=== PATIENT | female | born 1980 | race African-American/Black ===

== ENCOUNTER 2020-02-28 14:35 | Outpatient (REF) | payer OTHER, SELFPAY ==
--- NOTE | 2020-02-28 | US_ITS ---
EXAMINATION: US RETROPERITONEAL LIMITED (RENAL ONLY) CLINICAL INFORMATION: Renal stone. COMPARISON: Renal ultrasound 08/31/2019 and 01/02/2019. KUB 03/01/2019 and 12/21/2018. CT abdomen and pelvis 07/06/2017. TECHNIQUE: Real-time imaging of the kidneys. FINDINGS: RIGHT KIDNEY: 11.9 x 4.9 x 5.2 cm (SAG x AP x TRV). The kidney is normal in size, contour, and echogenicity. Renal cortical thickness is normal. There are midpole anechoic cyst measuring 1.1 x 1.2 x 1.0 cm. There are several echogenic stones. 1. Upper pole stone measures 0.5 x 0.4 x 0.4 cm. 2. A lower pole stone measures 0.3 x 0.3 x 0.2 cm. 3. Upper pole stone measures 0.4 x 0.2 x 0.3 cm. There are echogenic pyramids. No echogenic stones. There is mild hydronephrosis seen. LEFT KIDNEY: 11.1 x 5.6 x 6.0 cm (SAG x AP x TRV). The kidney is normal in size, contour, and echogenicity. Renal cortical thickness is normal. No renal calculi. There are 2 echogenic stones. A lower pole stone measuring 0.4 x 0.4 x 0.4 cm and midpole stone measuring 0.2 x 0.3 x 0.3 cm. There are echogenic pyramids visualized. There is mild fullness of left kidney pelvis. US/US renal BI IMPRESSION: 1. Bilateral echogenic pyramids and echogenic stones without caliectasis or hydronephrosis. 2. There are 3 cysts in the right kidney. 3. There is mild right hydroureteronephrosis and mild fullness left kidney pelvis.
== END 2020-02-28 14:36 | disposition home or self-care (01) ==
LOC: HO.HMGCX 14:35
PROVIDERS: PCP Internal Medicine; Visit Provider Internal Medicine
DX: N20.0 Calculus of kidney (principal)
CPT/HCPCS: 76775

== ENCOUNTER → 2020-05-17 08:53 | Outpatient (BNVA) | payer OTHER, SELFPAY | PROVIDERS: PCP Internal Medicine; Visit Provider Urology ==

== ENCOUNTER 2020-11-18 15:37 | Outpatient (REF) | payer OTHER, SELFPAY ==
--- NOTE | ~2020-11-18 | US_ITS ---
EXAMINATION: US RETROPERITONEAL LIMITED (RENAL ONLY) CLINICAL INFORMATION: Calculus of kidney. COMPARISON: Renal ultrasound 02/28/2020 and 08/31/2019. X-ray abdomen KUB 03/01/2019 and 12/21/2018. CT abdomen and pelvis 07/06/2017. TECHNIQUE: Real-time imaging of the kidneys. FINDINGS: RIGHT KIDNEY: 11.6 x 4.8 x 5.5 cm (SAG x AP x TRV). The kidney is normal in size, contour, and echogenicity. Renal cortical thickness is normal. No hydronephrosis. Midpole simple-appearing cyst measuring 1.3 x 1.7 x 1.2 cm, unchanged. Upper pole stone measuring 0.3 cm. Additional previously seen right-sided renal stones not appreciated on the current examination. LEFT KIDNEY: 11.3 x 5.7 x 5.8 cm (SAG x AP x TRV). The kidney is normal in size, contour, and echogenicity. Renal cortical thickness is normal. No focal parenchymal lesions or hydronephrosis. Lower pole stone measuring 0.4 cm. Additional, previously seen left midpole stone not appreciated on the current examination. US/US renal BI IMPRESSION: 1. Nonobstructing right upper pole 0.3 cm renal stone and left lower pole 0.4 cm renal stone. Additional previously seen renal stones not identified on the current examination. 2. No hydronephrosis.
== END 2020-11-18 15:38 | disposition home or self-care (01) ==
LOC: HO.HMGCX 15:37
PROVIDERS: PCP Internal Medicine; Visit Provider Urology
DX: N20.0 Calculus of kidney (principal)
CPT/HCPCS: 76775

== ENCOUNTER 2021-05-12 15:29 | Outpatient (REF) | payer OTHER, SELFPAY ==
--- NOTE | ~2021-05-12 | US_ITS ---
EXAMINATION: US RETROPERITONEAL LIMITED (RENAL ONLY) CLINICAL INFORMATION: Calculus of kidney. COMPARISON: Renal ultrasound 11/18/2020 and 02/28/2020. X-ray abdomen KUB 03/01/2019. CT abdomen and pelvis 07/06/2017. TECHNIQUE: Real-time imaging of the kidneys. FINDINGS: RIGHT KIDNEY: 11.3 x 4.7 x 5.5 cm (SAG x AP x TRV). The kidney is normal in size, contour, and echogenicity. Renal cortical thickness is normal. There is a 1.5 x 1.3 x 1.3 cm cyst in the midpole. No renal calculi or hydronephrosis. LEFT KIDNEY: 10.7 x 5.9 x 5.3 cm (SAG x AP x TRV). The kidney is normal in size, contour, and echogenicity. Renal cortical thickness is normal. There are 3 left renal stones largest measuring 4 x 3 mm in the lower pole. No focal parenchymal lesions or hydronephrosis. US/US renal BI IMPRESSION: Left renal stones. Small right renal cyst.
== END 2021-05-12 15:30 | disposition home or self-care (01) ==
LOC: HO.HMGCX 15:29
PROVIDERS: PCP Internal Medicine; Visit Provider Urology
DX: N20.0 Calculus of kidney (principal)
CPT/HCPCS: 76775

== ENCOUNTER 2022-02-02 15:31 | Outpatient (REF) | payer OTHER, SELFPAY | END 2022-02-02 15:32 | disposition home or self-care (01) | LOC: HO.HMGCX 15:31 | PROVIDERS: Visit Provider Urology | DX: N20.0 Calculus of kidney (principal); N28.1 Cyst of kidney, acquired | CPT/HCPCS: 76775 ==

== ENCOUNTER → 2022-02-27 08:43 | Outpatient (BNVA) | payer OTHER, SELFPAY | PROVIDERS: PCP Internal Medicine; Visit Provider Nurse Practitioner Family | DX: Z13.89 Encounter for screening for other disorder (principal) ==

== ENCOUNTER 2022-08-10 14:35 | Outpatient (REF) | payer OTHER, SELFPAY ==
--- NOTE | ~2022-08-10 | US_ITS ---
EXAMINATION: US RETROPERITONEAL LIMITED (RENAL ONLY) CLINICAL INFORMATION: Cyst of kidney, acquired. COMPARISON: Ultrasound retroperitoneal limited (renal only) 02/02/2022 and 05/12/2021. X-ray abdomen KUB 03/01/2019 and 12/21/2018. CT abdomen and pelvis without contrast 07/06/2017. TECHNIQUE: Real-time imaging of the kidneys. FINDINGS: RIGHT KIDNEY: 11.8 x 4.4 x 5.6 cm (SAG x AP x TRV). The kidney is normal in size, contour, and echogenicity. Renal cortical thickness is normal. No hydronephrosis. At the upper pole, a 4 mm nonobstructing calculus is seen. At the lower pole, a 4 mm nonobstructing calculus is seen. At the upper pole, a 1.6 cm maximal diameter benign, simple cyst is seen. At the interpolar aspect, a stable 1.4 x 2.0 x 1.3 cm minimally complex cyst is seen with minimal internal echotexture. LEFT KIDNEY: 11.7 x 6.0 x 6.0 cm (SAG x AP x TRV). The kidney is normal in size, contour, and echogenicity. Renal cortical thickness is normal. No focal parenchymal lesions. No hydronephrosis. At the interpolar aspect, a 3 mm nonobstructing calculus is seen. At the lower pole, a 1.1 cm nonobstructing calculus is seen. US/US renal BI IMPRESSION: 1. There are nonobstructing bilateral renal calculi. No hydronephrosis is seen. 2. A stable minimally complex right renal interpolar cyst is seen, and there is a further benign, simple right renal lower pole cyst, which requires no imaging follow-up.
== END 2022-08-10 14:36 | disposition home or self-care (01) ==
LOC: HO.HMGCX 14:35
PROVIDERS: PCP Internal Medicine; Visit Provider Nurse Practitioner Family
DX: N20.0 Calculus of kidney (principal); N28.1 Cyst of kidney, acquired
CPT/HCPCS: 76775

== ENCOUNTER 2022-09-03 15:33 | Outpatient (REF) | payer OTHER, SELFPAY ==
--- NOTE | ~2022-09-03 | XR_ITS ---
EXAMINATION: XR ABDOMEN KUB CLINICAL INDICATION: Nephrolithiasis. COMPARISON: 03/01/2019 TECHNIQUE: 3 views of the abdomen. FINDINGS: Imaged lung bases are clear. The renal shadows are obscured by overlying bowel contents. Nonobstructive bowel gas pattern. Moderate gas and stool throughout the colon. XR/XR KUB IMPRESSION: Limited study due to obscured renal shadows.
== END 2022-09-03 15:34 | disposition home or self-care (01) ==
LOC: HO.XRAY 15:33
PROVIDERS: PCP Internal Medicine; Visit Provider Nurse Practitioner Family
DX: N20.0 Calculus of kidney (principal); N28.1 Cyst of kidney, acquired
CPT/HCPCS: 74018

== ENCOUNTER 2022-09-03 15:33 | Outpatient (AMB) | payer OTHER, SELFPAY ==
--- NOTE | 2022-09-03 15:46 | A.OFFVIS_ITS ---
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 Michael PRADO. She presents to the office today for follow-up of her renal calculi and renal cyst. In discussion with the patient today she reports to be doing and feeling well. Recent renal imaging results reviewed with the patient today. Right kidney with 4 mm nonobstructing calculus seen in the upper pole. 4 mm nonobstructing calculus in the lower pole. No hydronephrosis noted. At the upper pole of 1.6 cm maximal diameter benign simple cyst is seen. At the inter pole aspect a stable 1.4 x 2.0 x 1.3 cm minimal complex cyst is seen with minimal internal echotexture. Left kidney with no lesions or hydronephrosis noted. At the inter pole aspect of 3 mm nonobstructing calculus is seen. At the lower pole 1.1 cm nonobstructing calculus is seen. When asked patient denies urinary urgency, urinary frequency, incontinence, nocturia, hematuria, dysuria, foul smelling urine, changes to urinary stream, flank pain, fever, and or chills. She is happy with her current voiding parameters. In office urinalysis results reviewed with the patient today. She reports compliance with vitamin B6 and reports drinking plenty of water daily. Discussed obtaining KUB for further assessment evaluation as ultrasound showing 1.1 cm nonobstructing left calculus. Discussed at length surveillance monitoring verses obtaining KUB verses surgical intervention. Discussed risks and benefits of these mentioned interventions. Will obtain KUB for further assessment evaluation. ? [facility] Medical History Hydronephrosis with ureteropelvic junction (UPJ) obstruction Renal cyst, acquired Renal stones Review of Systems Const All systems reviewed & are unremarkable except as noted in HPI and below Reports no additional complaints Eyes Reports no additional complaints ENT Reports no additional complaints Card Reports no additional complaints Resp Reports no additional complaints GI Reports no additional complaints Reports as per HPI Musc Reports no additional complaints Neuro Details: Patient reports taking metformin for PCOS Psych Reports no additional complaints Endo Reports no additional complaints Physical Exam Const General: cooperative, healthy appearing, comfortable, no acute distress, well developed, alert and awake Orientation/consciousness: patient oriented x3 Limitations: no limitations HEENT Head: Yes normal to inspection, Yes normocephalic and Yes atraumatic Ears: hearing grossly normal bilaterally Eyes General: appearance normal, both eyes and all related structures Neck Neck: Yes normal visual inspection and Yes trachea midline Chest Chest palpation & inspection: normal inspection of the chest Resp Effort & Inspection: able to speak in complete sentences Cardio Rate: regular rate GI Inspection: Yes normal to inspection General: Yes no CVA tenderness Back/Spine/Pelvis Back: no CVA tenderness Skin General skin exam: no rashes or lesions noted Neuro General: patient oriented x3 Extrem General: Yes normal to inspection Psych Appearance: grossly normal and well kempt Mental Status: mental status grossly normal Speech and movement: Normal speech and movement present and Clear speech present Affect: normal affect Attitude: cooperative Thought process: Normal thought process present Thought content: Normal thought content present Insight: Good insight present (Psych) Judgement: Good judgement present (Psych) Results AMB Urinalysis, Automated UA Leukoctes 0 Berny/uL Last Edit by Newton Corrales on 09/03/22 16:04 UA Nitrite Last Edit by Newton Corrales on 09/03/22 16:04 UA Urobilinogen 0.2 mg/dL Last Edit by Newton Corrales on 09/03/22 16:04 UA Protein 15 mg/dL Last Edit by Newton Corrales on 09/03/22 16:04 UA pH 6.0 Last Edit by Newton Corrales on 09/03/22 16:04 UA Blood 200 Erasmo/uL Last Edit by Newton Corrales on 09/03/22 16:04 UA Specific [place] 1.030 Last Edit by Newton Aguilatheresa on 09/03/22 16:04 UA Ketone Last Edit by Newton Aylatheresa on 09/03/22 16:04 UA Bilirubin 0 mg/dL Last Edit by Newton Aylatheresa on 09/03/22 16:04 UA Glucose 0 mg/dL Last Edit by Newton Aylatheresa on 09/03/22 16:04 Results Reviewed Results Reviewed: Laboratory Last Values Urine pH (Auto) 6.0 09/03/22 15:55 Specific [place] (Auto) 1.030 09/03/22 15:55 Urine Protein (Auto) 15 mg/dL 09/03/22 15:55 Glucose (UA)(Auto) 0 mg/dL 09/03/22 15:55 Urine Blood (Auto) 200 Erasmo/uL 09/03/22 15:55 Urine Bilirubin (Auto) 0 mg/dL 09/03/22 15:55 Urine Urobilinogen (Auto) 0.2 mg/dL 09/03/22 15:55 Leukocyte Esterase (Auto) 0 Berny/uL 09/03/22 15:55 Date of Service: 08/10/22 EXAMINATION: US RETROPERITONEAL LIMITED (RENAL ONLY) FINDINGS: RIGHT KIDNEY: 11.8 x 4.4 x 5.6 cm (SAG x AP x TRV). The kidney is normal in size, contour, and echogenicity. Renal cortical thickness is normal. No hydronephrosis. At the upper pole, a 4 mm nonobstructing calculus is seen. At the lower pole, a 4 mm nonobstructing calculus is seen. At the upper pole, a 1.6 cm maximal diameter benign, simple cyst is seen. At the interpolar aspect, a stable 1.4 x 2.0 x 1.3 cm minimally complex cyst is seen with minimal internal echotexture. LEFT KIDNEY: 11.7 x 6.0 x 6.0 cm (SAG x AP x TRV). The kidney is normal in size, contour, and echogenicity. Renal cortical thickness is normal. No focal parenchymal lesions. No hydronephrosis. At the interpolar aspect, a 3 mm nonobstructing calculus is seen. At the lower pole, a 1.1 cm nonobstructing calculus is seen. IMPRESSION: 1. There are nonobstructing bilateral renal calculi. No hydronephrosis is seen. ? 2. A stable minimally complex right renal interpolar cyst is seen, and there is a further benign, simple right renal lower pole cyst, which requires no imaging follow-up. Assessment & Plan Assessment & Plan (1) Renal cyst, acquired: Code(s): N28.1 - Cyst of kidney, acquired (2) Renal stones: Code(s): N20.0 - Calculus of kidney Plan In office urinalysis results reviewed with the patient today; as noted above. Recent renal imaging results reviewed with the patient today; as noted above. Patient denies any urinary issues or concerns at this time. Will obtain KUB for further assessment evaluation Continue vitamin B6 as discussed and prescribed. Continue drinking plenty of water daily. Continue adding 1 oz of lemon juice to water daily. Follow-up in 2-4 weeks with KUB to be completed prior; or sooner with any issues, concerns, and or questions. Orders: Orders XR KUB 09/03/22 N20.0 - Calculus of kidney AMB Urinalysis Automated 09/03/22 Z13.9 - Encounter for screening, unspecified Patient Instructions: The patient had an opportunity to ask questions regarding the treatment plan. All questions were answered. Physical exam, labs, and imaging were discussed and reviewed in detail. As well as risks, benefits, and discussion of treatment choices. No major barriers to understanding were identified. The patient express ed understanding and agreement with the above treatment plan. The patient was made aware they should contact our office by phone for worsening of their current condition, the appearance of new symptoms, or with any questions or concerns. Compliance is encouraged with any medications and follow up testing that is ordered. It is a privilege to be allowed the opportunity to participate in? your urological care.? Again, if you have any questions or concerns If you have any questions or concerns please do not hesitate to contact me. The office is [phone]. This note is constructed using voice recognition software. While every effort has been made to ensure accuracy butcher scullion errors may have been included. Yours sincerely, DELILAH Simons Coding Level of Care Code Est Pt Level 3 (91193) Diagnoses Renal cyst, acquired N28.1 Renal stones N20.0
== END 2022-09-03 16:18 | disposition home or self-care (01) ==
PROVIDERS: Visit Provider Nurse Practitioner Family
DX: N28.1 Cyst of kidney, acquired (principal); N20.0 Calculus of kidney
CPT/HCPCS: 99213

== ENCOUNTER 2022-09-24 13:31 | Outpatient (AMB) | payer OTHER, SELFPAY ==
--- NOTE | 2022-09-24 13:31 | A.OFFVIS_ITS ---
Intake Intake Visit Reasons: 2w/KUB(set) Intake Note: Patient is present for tele visit follow up Kidney stones/Kidney cyst (imaging 09/03) Urology Medication: Vitamin B6 Blood Thinner: none Special Forces Specialist Required: No Allergies No Known Allergies [No Known Allergies*] Allergy (Unverified 09/24/22 13:37) Medication List - Last Reconciled 09/24/22 by Ilana Garcia, WOODWORKING MACHINE SETTER- metformin 500 mg PO BID montelukast 10 mg PO BEDTIME pyridoxine (vitamin B6) 100 mg PO DAILY 90 days semaglutide (weight loss) (Wegovy) mg subcut spironolactone 50 mg PO DAILY HPI HPI Comments History of Present Illness Details Sania is a pleasant 42 year old female patient of Dr. Michael PRADO. She is being follow-up on today via telehealth for her renal calculi and renal cyst. In discussion with the patient today she reports to be doing and feeling well. Of note, patient was seen approximately 3 weeks ago at which time recent renal ultrasound showing right kidney with 4 mm nonobstructing calculus seen in the upper pole. 4 mm nonobstructing calculus in the lower pole. No hydronephrosis noted. At the upper pole of 1.6 cm maximal diameter benign simple cyst is seen. At the inter pole aspect a stable 1.4 x 2.0 x 1.3 cm minimal complex cyst is seen with minimal internal echotexture. Left kidney with no lesions or hydronephrosis noted. At the inter pole aspect of 3 mm nonobstructing calculus is seen. At the lower pole 1.1 cm nonobstructing calculus is seen. At which time a KUB was ordered for further assessment evaluation. These results were reviewed with the patient today. The renal shadows are obscured by overlying bowel contents. Nonobstructive bowel gas pattern. Moderate gas and stool throughout the colon. Limited study due to obscured renal shadows. When asked patient denies urinary urgency, urinary frequency, incontinence, nocturia, hematuria, dysuria, foul smelling urine, changes to urinary stream, flank pain, fever, and or chills. She is happy with her current voiding parameters. Discussed at length surveillance monitoring verses verses surgical intervention. Patient otherwise offers no issues or concerns at this time. [facility] Medical History Hydronephrosis with ureteropelvic junction (UPJ) obstruction Renal cyst, acquired Renal stones Review of Systems Const All systems reviewed & are unremarkable except as noted in HPI and below Reports no additional complaints Eyes Reports no additional complaints ENT Reports no additional complaints Card Reports no additional complaints Resp Reports no additional complaints GI Reports no additional complaints Reports as per HPI Musc Reports no additional complaints Neuro Details: Patient reports taking metformin for PCOS Psych Reports no additional complaints Endo Reports no additional complaints Physical Exam Const General: cooperative Resp Effort & Inspection: able to speak in complete sentences Psych Speech and movement: Clear speech present Attitude: cooperative Thought process: Normal thought process present Thought content: Normal thought content present Insight: Good insight present (Psych) Judgement: Good judgement present (Psych) Results Reviewed Results Reviewed: Date of Service: 09/03/22 Procedure(s): XR KUB FINDINGS: Imaged lung bases are clear. The renal shadows are obscured by overlying bowel contents. Nonobstructive bowel gas pattern. Moderate gas and stool throughout the colon. IMPRESSION: Limited study due to obscured renal shadows. Assessment & Plan Assessment & Plan (1) Renal cyst, acquired: Code(s): N28.1 - Cyst of kidney, acquired (2) Renal stones: Code(s): N20.0 - Calculus of kidney Plan Recent KUB results reviewed with the patient today. Patient denies any urinary issues or concerns at this time. Patient reports she continues to drink plenty of water daily. Continue vitamin B6 as discussed and prescribed. Continue adding 1 oz of lemon juice to water daily. Discussed at length surveillance monitoring versus surgical intervention; discussed risks and benefits of both aforementioned interventions. All questions were answered Renal ultrasound and KUB in 6 months Follow-up in 6 months with imaging to be completed prior; or sooner with any issues, concerns, and or questions. Orders: Orders US renal BI 6 Months N20.0 - Calculus of kidney XR KUB 6 Months N20.0 - Calculus of kidney Medications: Refilled pyridoxine (vitamin B6) 100 mg PO DAILY 90 days 90 tabs 3RF N20.0 - Calculus of kidney Patient Instructions: The patient had an opportunity to ask questions regarding the treatment plan. All questions were answered. Physical exam, labs, and imaging were discussed and reviewed in detail. As well as risks, benefits, and discussion of treatment choices. No major barriers to understanding were identified. The patient expressed understanding and agreement with the above treatment plan. The patient was made aware they should contact our office by phone for worsening of their current condition, the appearance of new symptoms, or with any questions or concerns. Compliance is encouraged with any medications and follow up testing that is ordered. It is a privilege to be allowed the opportunity to participate in? your urological care.? Again, if you have any questions or concerns If you have any questions or concerns please do not hesitate to contact me. The office is [phone]. This note is constructed using voice recognition software. While every effort has been made to ensure accuracy traffic technician errors may have been included. Yours sincerely, JORGE ALBERTO Simons Telehealth Telehealth Location of provider rendering services: practice address Location of patient: address on file Patient Identification confirmed using: Name, : Yes Telehealth method: voice only Patient verbally consented to treatment: Yes Patient verbally consented to billing insurance company: Yes Patient informed of any privacy concerns related to visit: Yes Minutes spent on Phone/Video with Pt.: 15 Coding Level of Care Code Tele Est Pt Level 3 (01506) Diagnoses Renal cyst, acquired N28.1 Renal stones N20.0
== END 2022-09-24 13:59 | disposition home or self-care (01) ==
LOC: HO.HUSH 13:31
PROVIDERS: PCP Internal Medicine; Visit Provider Nurse Practitioner Family
DX: N28.1 Cyst of kidney, acquired (principal); N20.0 Calculus of kidney
CPT/HCPCS: 99442

== ENCOUNTER → 2022-09-24 13:31 | Outpatient (BNVA) | payer OTHER, SELFPAY | PROVIDERS: PCP Internal Medicine; Visit Provider Nurse Practitioner Family ==

== ENCOUNTER 2023-02-23 14:29 | Outpatient (REF) | payer OTHER, SELFPAY ==
--- NOTE | ~2023-02-23 | US_ITS ---
EXAMINATION: US RETROPERITONEAL LIMITED (RENAL ONLY) CLINICAL INFORMATION: Calculus of kidney. COMPARISON: X-ray abdomen KUB 09/03/2022. Renal ultrasound 08/10/2022 and 02/02/2022. X-ray abdomen KUB 03/01/2019. CT abdomen and pelvis without contrast 07/06/2017. TECHNIQUE: Real-time imaging of the kidneys. Limited visualization due to bowel gas. FINDINGS: RIGHT KIDNEY: 11.5 x 5.0 x 6.1 cm (SAG x AP x TRV). Redemonstration of midpole 1.3 x 1.7 x 1.4 cm mildly complex cyst, previously 1.4 x 2.0 x 1.3 cm. Upper pole 1.2 x 0.8 x 1.0 cm simple cyst redemonstrated. There is no indication for follow-up imaging. Renal cortical thickness is normal. No hydronephrosis. Upper pole 0.4 cm calculus. Multiple additional tiny nonshadowing right renal echogenic foci redemonstrated, possibly representing vascular calcifications or parenchymal calcifications. Limited visualization. LEFT KIDNEY: 11.0 x 5.6 x 7.2 cm (SAG x AP x TRV). Lower pole 0.9 cm calculus versus cluster of calculi redemonstrated. Limited visualization. No hydronephrosis. US/US renal BI IMPRESSION: Bilateral nonobstructive renal calculi. No hydronephrosis.
== END 2023-02-23 14:30 | disposition home or self-care (01) ==
LOC: HO.HMGCX 14:29
PROVIDERS: PCP Internal Medicine; Visit Provider Nurse Practitioner Family
DX: N20.0 Calculus of kidney (principal)
CPT/HCPCS: 76775

== ENCOUNTER 2023-03-25 15:45 | Outpatient (REF) | payer OTHER, SELFPAY ==
--- NOTE | ~2023-03-25 | XR_ITS ---
EXAMINATION: XR ABDOMEN KUB CLINICAL INDICATION: Calculus of kidney COMPARISON: None available. TECHNIQUE: AP view of the abdomen. FINDINGS: There is scattered stool and gas seen in colon without distention. There is no organomegaly. No radiopaque calculi. No gross bony abnormality seen. XR/XR KUB IMPRESSION: Mild constipation. No radiopaque calculi seen.
== END 2023-03-25 15:46 | disposition home or self-care (01) ==
LOC: HO.HMGCX 15:45
PROVIDERS: PCP Internal Medicine; Visit Provider Nurse Practitioner Family
DX: N20.0 Calculus of kidney (principal)
CPT/HCPCS: 74018

== ENCOUNTER 2023-03-26 09:40 | Outpatient (AMB) | payer OTHER, SELFPAY ==
--- NOTE | 2023-03-26 09:41 | A.OFFVIS_ITS ---
Intake Intake Visit Reasons: 6 mo follow up/ US Intake Note: Patient is present for follow up visit Kidney stones/Kidney cyst Imagin02/23/23 Urology Medication: Vitamin B6 Blood Thinner: none Manufacturer Required: No Allergies No Known Allergies [No Known Allergies*] Allergy (Verified 03/26/23 12:33) Medication List - Last Reconciled 03/26/23 by DELILAH Simons metformin 500 mg PO BID montelukast 10 mg PO BEDTIME pyridoxine (vitamin B6) 100 mg PO DAILY 90 days semaglutide (weight loss) (Wegovy) mg subcut spironolactone 50 mg PO DAILY HPI HPI Comments History of Present Illness Details Sania is a pleasant 42 year old female patient of Dr. Michael PRADO. She is being follow-up on today via telehealth for her renal calculi and renal cyst. In discussion with the patient today she reports to be doing and feeling well. Recent renal imaging results reviewed with the patient today. Renal ultrasound noting right kidney with redemonstration of mid pole 1.7 mildly complex cyst in upper pole 1.2 simple cyst. There is no indication for follow-up imaging per radiology report. No hydronephrosis noted. Upper pole 0.4 cm calculus. Multiple additional tiny nonshadowing right renal echogenic foci redemonstrated, possibly representing vascular calcifications or parenchymal calcifications. Left kidney with lower pole 0.9 cm calculus versus cluster of calculi redemonstrated. KUB with no radiopaque calculi noted. When asked she reports to be doing and feeling well. She reports to be drinking plenty of water daily. She also reports to be adding lemon juice to ulises gladys. She denies any bothersome urinary issues or concerns. When asked she denies urinary urgency, urinary frequency, incontinence, nocturia, hematuria, dysuria, foul smelling urine, changes to urinary stream, flank pain, fever, and or chills. She is happy with her current voiding parameters. Discussed at length surveillance monitoring verses verses surgical intervention. Patient otherwise offers no issues or concerns at this time. [facility] Medical History Renal cyst, acquired Hydronephrosis with ureteropelvic junction (UPJ) obstruction Renal stones Review of Systems Const All systems reviewed & are unremarkable except as noted in HPI and below Reports no additional complaints Eyes Reports no additional complaints ENT Reports no additional complaints Card Reports no additional complaints Resp Reports no additional complaints GI Reports no additional complaints Reports as per HPI Musc Reports no additional complaints Neuro Details: Patient reports taking metformin for PCOS Psych Reports no additional complaints Endo Reports no additional complaints Physical Exam Const General: cooperative, healthy appearing, comfortable, no acute distress, well developed and alert Orientation/consciousness: patient oriented x3 Resp Effort & Inspection: normal respiratory effort and able to speak in complete sentences Neuro General: patient oriented x3 Psych Appearance: grossly normal and well kempt Mental Status: mental status grossly normal Speech and movement: Clear speech present Affect: normal affect Attitude: cooperative Thought process: Normal thought process present Thought content: Normal thought content present Insight: Good insight present (Psych) Judgement: Good judgement present (Psych) Results Reviewed Results Reviewed: Date of Service: 02/23/23 EXAMINATION: US RETROPERITONEAL LIMITED (RENAL ONLY) FINDINGS: RIGHT KIDNEY: 11.5 x 5.0 x 6.1 cm (SAG x AP x TRV). Redemonstration of midpole 1.3 x 1.7 x 1.4 cm mildly complex cyst, previously 1.4 x 2.0 x 1.3 cm. Upper pole 1.2 x 0.8 x 1.0 cm simple cyst redemonstrated. There is no indication for follow-up imaging. Renal cortical thickness is normal. No hydronephrosis. Upper pole 0.4 cm calculus. Multiple additional tiny nonshadowing right renal echogenic foci redemonstrated, possibly representing vascular calcifications or parenchymal calcifications. Limited visualization. LEFT KIDNEY: 11.0 x 5.6 x 7.2 cm (SAG x AP x TRV). Lower pole 0.9 cm calculus versus cluster of calculi redemonstrated. Limited visualization. No hydronephrosis. IMPRESSION: Bilateral nonobstructive renal calculi. No hydronephrosis. Date of Service: 03/25/23 EXAMINATION: XR ABDOMEN KUB FINDINGS: There is scattered stool and gas seen in colon without distention. There is no organomegaly. No radiopaque calculi. No gross bony abnormality seen. IMPRESSION: Mild constipation. No radiopaque calculi seen. Assessment & Plan Assessment & Plan (1) Renal cyst, acquired: Code(s): N28.1 - Cyst of kidney, acquired (2) Renal stones: Code(s): N20.0 - Calculus of kidney Plan Recent renal imaging results reviewed with the patient today; renal ultrasound and KUB; as noted above Patient denies any urinary issues or concerns at this time. Patient reports she continues to drink plenty of water daily. Continue vitamin B6 as discussed and prescribed. Continue adding 1 oz of lemon juice to water daily. Discussed at length surveillance monitoring versus surgical intervention; discussed risks and benefits of both aforementioned interventions. All questions were answered Renal ultrasound and KUB in 6 months Follow-up in 6 months with imaging to be completed prior; or sooner with any issues, concerns, and or questions. Orders: Orders US renal BI 364 Days N20.0 - Calculus of kidney Patient Instructions: The patient had an opportunity to ask questions regarding the treatment plan. All questions were answered. Physical exam, labs, and imaging were discussed and reviewed in detail. As well as risks, benefits, and discussion of treatment choices. No major barriers to understanding were identified. The patient expressed understanding and agreement with the above treatment plan. The patient was made aware they should contact our office by phone for worsening of their current condition, the appearance of new symptoms, or with any questions or concerns. Compliance is encouraged with any medications and follow up testing that is ordered. It is a privilege to be allowed the opportunity to participate in? your urological care.? Again, if you have any questions or concerns If you have any questions or concerns please do not hesitate to contact me. The office is [phone]. This note is constructed using voice recognition software. While every effort has been made to ensure accuracy tree and shrub technician errors may have been included. Yours sincerely, JORGE ALBERTO Simons Telehealth Telehealth Location of provider rendering services: practice address Location of patient: address on file Patient Identification confirmed using: Name, : Yes Telehealth method: video Patient verbally consented to treatment: Yes Patient verbally consented to billing insurance company: Yes Patient informed of any privacy concerns related to visit: Yes Minutes spent on Phone/Video with Pt.: 15 Coding Level of Care Code Tele Est Pt Level 3 (05592) Diagnoses Renal cyst, acquired N28.1 Renal stones N20.0
== END 2023-03-26 12:18 | disposition home or self-care (01) ==
LOC: HO.HUSH 09:40
PROVIDERS: PCP Internal Medicine; Visit Provider Nurse Practitioner Family
DX: N28.1 Cyst of kidney, acquired (principal); N20.0 Calculus of kidney
CPT/HCPCS: 99213

== ENCOUNTER → 2023-03-26 09:40 | Outpatient (BNVA) | payer OTHER, SELFPAY | PROVIDERS: PCP Internal Medicine; Visit Provider Nurse Practitioner Family ==

== ENCOUNTER → 2024-03-22 15:23 | Outpatient (REF) | payer OTHER, SELFPAY ==
--- OUTSIDE RECORDS SUMMARY | 2024-03-22 16:21 | XMS_ITS | Clinical Summary ---
Author Organization [facility] Address [address] [place] [address] Care Team Providers Care Marketing Copywriter Name Role Phone Mitesh Rodriguez MD Primary Care Provider [phone] Allergies No known active allergies Medications Medication Sig Dispensed Refills Start Date End Date Status albuterol HFA (PROAIR HFA ; PROVENTIL HFA ; VENTOLIN HFA) 90 mcg/actuation inhaler Inhale 2 Puffs into the lungs 4 times daily as needed for Cough, Wheezing or Shortness of Breath. 12/30/2020 Active famotidine (PEPCID) 20 mg tablet Take 1 Tablet by mouth 2 times daily as needed for Heartburn for up to 180 days. 05/18/2022 Active loratadine (CLARITIN) 10 mg tablet Take 1 tablet (10 mg total) by mouth 1 (one) time each day. 02/05/2021 Active pyridoxine (B-6) 100 mg tablet Historic 11/19/2020 Active semaglutide (Wegovy) 0.25 mg/0.5 mL injection pen Inject 0.25 mg into the skin once a week. 08/23/2023 Active spironolactone (ALDACTONE) 50 mg tablet Take 1 tablet (50 mg total) by mouth 1 (one) time each day. 09/04/2022 Active montelukast (SINGULAIR) 10 mg tablet TAKE 1 TABLET BY MOUTH EVERYDAY AT BEDTIME 90 tablet 03/07/2024 Active metFORMIN XR (GLUCOPHAGE-XR) 500 mg 24 hr tabletIndication s:Prediabetes TAKE 2 TABLETS BY MOUTH TWICE A DAY BEFORE MEALS 360 tablet 03/17/2024 Active metFORMIN XR (GLUCOPHAGE-XR) 500 mg 24 hr tablet Take 2 tablets (1,000 mg total) by mouth 2 (two) times a day. 12/23/2022 5 Discontinued montelukast (SINGULAIR) 10 mg tablet Take 1 tablet (10 mg total) by mouth at bedtime. 08/16/2023 5 Discontinued Active Problems Problem Noted Date Diagnosed Date Severe obesity (BMI 35.0-39.9) with comorbidity 07/23/2023 Asthma, allergic, moderate persistent, uncomplic ated 01/08/2021 Urticaria 12/05/2019 PCOS (polycystic ovarian syndrome) 04/29/2018 Multiple thyroid nodules 10/26/2017 Prediabetes 10/08/2016 Colon polyps 04/20/2016 Overview (01/21/2024): May 2021, two polyps removed - repeat in 5 years Internal hemorrhoids 09/11/2015 Renal stone 07/11/2015 Tobacco use disorder 12/05/2013 Snoring 06/23/2012 Overview (01/21/2024): 4-13 poly w no CRISTINA Allergic rhinitis 08/22/2005 Hypertension 07/24/2005 Dysplasia of cervix (uteri) 07/10/2005 Overview (01/21/2024): IMO update Other acne 06/01/2005 Immunizations Name Administration Dates Next Due Hepatitis B (Pydgrgi-D-Pymts , Recombivax HB-Adult) 19yo and older 06/17/2022,01/14/2022,12/17/2021 Influenza Quadravalent, MDCK , 0.5ml, preservative free (Flucelvax) 6mo and older 10/25/2020,12/05/2019 Influenza trivalent, 0.5mL, preservative free (Fluarix; FluLaval; Fluzone) ages 6mo and older (Afluria) 3 years and older 01/18/2014 MMR, measles mumps and rubel la Live (Priorix; M-M-R II) 12mo and older 05/06/2022,12/17/2021 Moderna SARS-CoV-2 COVID-19, mRNA, LNP-S, preservative free 04/10/2020,03/13/2020 Pneumococcal polysaccharide 23 valent (Pneumovax 23) 2yo and older 02/05/2021 Tdap Tetanus diptheria acell ular pertussis (Boostrix; Adacel) 7yo and older 12/05/2019,06/29/2008 Surgical History Surgery Date Site/Laterality Comments KIDNEY STONE SURGERY 2012, 2015, 2016 PROCEDURE: [place] NEPHROLITHOTOMY REMOVAL CALCULUS; COMMENT: urolog[place] in [facility] [place] PROCEDURE: OUTSIDE COLONOSCOPY; COMMENT: negative Medical History Medical History Date Comments Goiter, unspecified 06/01/2005 DX:Goiter, u nspecified Other acne 06/01/2005 DX:Other acne Dysplasia of cervix (uteri) DX:D ysplasia of cervix (uteri) Unspecified essential hypertension DX:Unspecified essential hypertension Allergic rhinitis, cause unspecified DX:Allergic rhinitis, cause unspecified Family History Medical History Relation Name Comments Colon cancer Aunt 1 paternal aunt d eceased Colon cancer Aunt 2 maternal aunt Colon cancer Aunt 3 maternal aunt Other: ocular cancer Aunt 4 paterna l aunt; bilat enucleation at 2 Lymphoma Father ; Agent [place] exposure Colon polyps Other paternal first cousin-? total, ? age Lung cancer Paternal Grandfather smoker Breast cancer Paternal Grandmother unilat eral Colon cancer Uncle 1 maternal uncle Colon cancer Uncle 2 maternal uncle Lung cancer Uncle 3 paternal uncle; smoker Blindness Neg Hx Cataracts Neg Hx Glaucoma Neg Hx Macular degeneration Neg Hx Strabismus Neg Hx Relation Name Status Comments Aunt 1 Aunt 2 Aunt 3 Aunt 4 Father Mother Alive healthy Other Paternal Grandfather Paternal Grandmother Uncle 1 Uncle 2 Uncle 3 Social History Tobacco Use Types Packs/Day Years Used Date Smoking Tobacco: Light Smoker Smokeless Tobacco: Never Alcohol Use Standard Drinks/Week Comments No 0 (1 standard drink = 0.6 oz pur e alcohol) Sex and Gender Information Value Date Recorded Sex Assigned at Not on file Gender Identity Not on file Sexual Orientation Not on file Obstetrics History Last Filed Vital Signs Vital Sign Reading Time Taken Comments Blood Pressure 110/60 10/14/2023 4:38 PM EDT Pulse 102 10/14/2023 4:38 PM EDT Temperature - - Respiratory Rate - - Oxygen Saturation - - Inhaled Oxygen Concentration - - Weight 118 kg (260 lb 11.2 oz) 10/14/2023 4:38 P M EDT Height 172.7 cm (5' 8 ) 10/14/2023 4:38 PM EDT Body Mass Index 39.64 10/14/2023 4:38 PM EDT Plan of Treatment Upcoming Encounters Date Type Department Care Team (Late st Contact Info) Description 04/08/2024 3:30 PM EST Appointment Radiology Department - [address] [address] 04/18/2024 2:00 PM EST Office Visit Adult Medicine [address] [phone] Mitesh Rodriguez MD [address] [place] [address] [phone] Health Maintenance Due Date Last Done Comments Social Influencers of Health Screening 01/24/2022 Pneumococcal Vaccine: Pediatrics (0 to 5 Years) and At-Risk Patients (6 to 64 Years) (2 of 2 - PCV) 02/05/2022 02/05/2021 COVID-19 Vaccine ( season) 2023 04/10/2020, 03/13/2020 Influenza Vaccine (#1) 2023 , 12/05/2019, 01/18/2014 Depression Screening 10/13/2024 10/14/2023 Hypertension/CHF/CAD Annual BMP Blood Test 10/18/2024 10/19/2023, 10/19/2023 Breast Cancer Screening 04/10/2025 04/10/19, 02/14/2022, 02/01/2021, Additional history exists Colorectal Cancer Screening: Colonoscopy 06/05/2026 06/05/2021 Cervical Cancer Screening: HPV 12/09/2027 12/08/2022 Cholesterol Screening (Lipid Panel) 10/18/2028 10/19/2023, 10/19/2023 DTaP,Tdap,and Td Vaccines (3 - Td or Tdap) 12/04/2029 12/05/2019, 06/29/2008 MMR Vaccines Aged Out 05/06/2022, 12/17/2021 No lo nger eligible based on patient's age to complete this topic Hepatitis B Vaccines Completed 06/17/2022, 01/14/2022, 12/17/2021 HIV Screening Completed 12/08/2022 Hepatitis C Screening Completed 12/08/2022 HIB Vaccines Aged Out No longer eligi ble based on patient's age to complete this topic HPV Vaccines Aged Out No longer eligi ble based on patient's age to complete this topic Hepatitis A Vaccines Aged Out No long er eligible based on patient's age to complete this topic IPV Vaccines Aged Out No longer eligi ble based on patient's age to complete this topic Meningococcal ACWY Vaccine Aged Out N o longer eligible based on patient's age to complete this topic RSV Immunization Patients Under 20 months Aged Out No longer eligible based on patient's age to complete this topic Varicella Vaccines Aged Out No longer eligible based on patient's age to complete this topic Procedures Procedure Name Priority Date/Time Associated Diagnosis Comments ANNUAL BMP BLOOD TEST Routine 10/19/2023 LIPID PANEL Routine 10/19/2023 DEPRESSION SCREENING Routine 10/14/2023 SCREENING MAMMOGRAPHY BI 2-VIEW BREAST INC CAD Routine 04/10/2023 12:36 PM EST Encounter for screening mammogram for malignant neoplasm of breast HPV Routine 12/08/2022 HEPATITIS C SCREENING Routine 12/08/2022 HIV SCREENING Routine 12/08/2022 COLONOSCOPY Routine 06/05/2021 from Last 3 Months or Most Recently Relevant to Health Maintenance Results * Annual BMP Blood Test (10/19/2023) Annual BMP Blood Test abstracted Historical Provider MD TRISHA Zabala * (ABNORMAL) Lipid panel (10/19/2023) LDL/HDL Ratio 4 0 - 4 Triglycerides 140 0 - 150 mg/dL Cholesterol 187 0 - 200 mg/dL HDL 46 40 mg/dL LDL Cholesterol 113(A) 0 - 100 mg/dL Blood Venous blood specimen / Unknown Historical Provider LAB BLOOD ORDERAB LES * Depression Screening (10/14/2023) Depression Screening abstracted Historical Provider [facility] * SCREENING MAMMOGRAPHY BI 2-VIEW BREAST INC CAD (04/10/2023 12:36 PM EST) Anatomical Region Laterality Modality Radiographic Alyssa ging 02/14/2022 12:2 3 PM EST Narrative 04/12/2023 8:36 AM EST This is a summary report. The complete report is available in the patient's medical record. If you cannot access the medical record, please contact the sending organization for a detailed fax or copy. Full field digital screening tomosynthesis mammography, reviewed with CAD and compared to previous mammograms dating back to 12/16/2019 with most recent of 02/14/2022. The breasts are composed of fatty and fibroglandular tissue. ??No suspicious mass, architectural distortion or suspicious calcifications are identified. IMPRESSION: : No mammographic evidence of malignancy. BIRADS 1-Negative; N. 5 year breast cancer risk assessment N/A Lifetime breast cancer risk assessment N/A Breast cancer risk category Breast cancer risk not assessed Procedure Note Cele Mcdonald MD - 10/04/2023 This is a summary report. The complete report is available in thepatient's medical record. If you cannot access the medical record, pleasecontact the sending organization for a detailed fax or copy. Full field digital screening tomosynthesis mammography, reviewed with CADand compared to previous mammograms dating back to 12/16/2019 with mostrecent of 02/14/2022. The breasts are composed of fatty and fibroglandulartissue. No suspicious mass, architectural distortion or suspiciouscalcifications are identified. IMPRESSION: : No mammographic evidence of malignancy. BIRADS 1-Negative; N. 5 year breast cancer risk assessment N/A Lifetime breast cancer risk assessment N/A Breast cancer risk category Breast cancer risk not assessed Michell Turner CNM IMG XR PROCEDURES * Cervical Cancer Screening: HPV (12/08/2022) [facility] Cervical Cancer Screening: HPV negative, abstracted Historical Provider [facility] * HIV Screening (12/08/2022) [facility] HIV Screening abstracted Historical [facility] * Hepatitis C Screening (12/08/2022) [facility] Hepatitis C Screening abstracted Historical Provider [facility] * Colonoscopy (06/05/2021) [facility] Colonoscopy abnormal, abstracted Anatomical Region Laterality Modality Other Historical Provider [facility] [employer] from Last 3 Months or Most Recently Relevant to Health Maintenance Care Teams Marketing Copywriter Relationship Specialty Start Date End Date Mitesh Rodriguez MD PCP - General 07/23/05
== END | disposition home or self-care (01) ==
LOC: HO.HMGCX 15:23
PROVIDERS: PCP Internal Medicine; Visit Provider Nurse Practitioner Family
DX: N20.0 Calculus of kidney (principal)
CPT/HCPCS: 76775

== ENCOUNTER → 2024-03-22 15:29 | Outpatient (BNV) | payer OTHER, SELFPAY | PROVIDERS: PCP Internal Medicine; Visit Provider Specialist | DX: N20.0 Calculus of kidney (principal) | CPT/HCPCS: 76775 ==

== ENCOUNTER 2024-03-27 15:34 | Outpatient (AMB) | payer OTHER, SELFPAY ==
--- NOTE | 2024-03-27 15:41 | MHC.OFFVIS ---
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 Michael PRADO. She presents to the office today for follow-up of her nephrolithiasis and renal cyst. In discussion with the patient today she reports to be doing and feeling well. Recent renal imaging results reviewed with the patient today. Redemonstration of mid pole right-sided complex renal cyst measuring approximately 1.7 cm and upper pole 1.2 simple cyst noted. When compared to previous imaging appears stable. Bilateral renal parenchymal calculi. No hydronephrosis noted bilaterally. No acute findings. She reports to be drinking plenty of water daily. She also reports to be adding lemon juice to ulises gladys. She denies any bothersome urinary issues or concerns. When asked she denies urinary urgency, urinary frequency, incontinence, nocturia, hematuria, dysuria, foul smelling urine, changes to urinary stream, flank pain, fever, and or chills. She is happy with her current voiding parameters. 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 Patient otherwise offers no issues or concerns at this time. [facility] Medical History Renal cyst, acquired Hydronephrosis with ureteropelvic junction (UPJ) obstruction Renal stones Review of Systems Const All systems reviewed & are unremarkable except as noted in HPI and below Reports no additional complaints Eyes Reports no additional complaints ENT Reports no additional complaints Card Reports no additional complaints Resp Reports no additional complaints GI Reports no additional complaints Reports as per HPI Musc Reports no additional complaints Neuro Details: Patient reports taking metformin for PCOS Psych Reports no additional complaints Endo Reports no additional complaints Physical Exam Const General: cooperative, healthy appearing, comfortable, no acute distress, well developed, alert and awake Orientation/consciousness: patient oriented x3 Limitations: no limitations HEENT Head: Yes normal to inspection, Yes normocephalic and Yes atraumatic Ears: hearing grossly normal bilaterally Eyes General: appearance normal, both eyes and all related structures Neck Neck: Yes normal visual inspection and Yes trachea midline Chest Chest palpation & inspection: normal inspection of the chest Resp Effort & Inspection: able to speak in complete sentences Cardio Rate: regular rate GI Inspection: Yes normal to inspection General: Yes no CVA tenderness Back/Spine/Pelvis Back: no CVA tenderness Skin General skin exam: no rashes or lesions noted Neuro General: patient oriented x3 Extrem General: Yes normal to inspection Psych Appearance: grossly normal and well kempt Mental Status: mental status grossly normal Speech and movement: Normal speech and movement present and Clear speech present Affect: normal affect Attitude: cooperative Thought process: Normal thought process present Thought content: Normal thought content present Insight: Good insight present (Psych) Judgement: Good judgement present (Psych) Results AMB Urinalysis, Automated UA Leukoctes 0 Berny/uL Last Edit by [employer] on 03/27/24 16:14 UA Nitrite Last Edit by [employer] on 03/27/24 16:14 UA Urobilinogen 0.2 mg/dL Last Edit by [employer] on 03/27/24 16:14 UA Protein 0 mg/dL Last Edit by [employer] on 03/27/24 16:14 UA pH 6.0 Last Edit by [employer] on 03/27/24 16:14 UA Blood 0 Erasmo/uL Last Edit by [employer] on 03/27/24 16:14 UA Specific [place] 1.025 Last Edit by [employer] on 03/27/24 16:14 UA Ketone Last Edit by [employer] on 03/27/24 16:14 UA Bilirubin 0 mg/dL Last Edit by [employer] on 03/27/24 16:14 UA Glucose 0 mg/dL Last Edit by [employer] on 03/27/24 16:14 Results Reviewed Results Reviewed: Laboratory Last Values Urine pH (Auto) 6.0 03/27/24 16:13 Specific [place] (Auto) 1.025 03/27/24 16:13 Urine Protein (Auto) 0 mg/dL 03/27/24 16:13 Glucose (UA)(Auto) 0 mg/dL 03/27/24 16:13 Urine Blood (Auto) 0 Erasmo/uL 03/27/24 16:13 Urine Bilirubin (Auto) 0 mg/dL 03/27/24 16:13 Urine Urobilinogen (Auto) 0.2 mg/dL 03/27/24 16:13 Leukocyte Esterase (Auto) 0 Berny/uL 03/27/24 16:13 Date of Service: 03/22/24 US Renal Comparison: None Findings: Right kidney normal size and echotexture, 10.6 cm length. Left kidney normal size and echotexture, 10.4 cm length. There are bilateral renal parenchymal calculi. IMPRESSION: 1. Bilateral renal parenchymal calculi. No acute findings Assessment & Plan Assessment & Plan (1) Renal cyst, acquired: Code(s): N28.1 - Cyst of kidney, acquired Category: Medical (2) Renal stones: Code(s): N20.0 - Calculus of kidney Category: Medical Plan In office urinalysis results reviewed with the patient today; as noted above. Recent renal imaging results reviewed with the patient today; as noted above. Patient currently denies any bothersome urinary issues or concerns. She reports be happy with current voiding parameters. We discussed at length importance of adequate hydration relation to nephrolithiasis as well as overall health and well-being. Continue adding 1 oz of lemon juice to water daily. Continue vitamin B6. Will obtain renal ultrasound in 1 year; however decrease to 50 mg daily Follow-up in 1 year with imaging to be completed prior; or sooner with any issues, concerns, and or questions. Orders: Orders US renal BI 1 Year N20.0 - Calculus of kidney, N28.1 - Cyst of kidney, acquired AMB Urinalysis Automated Today Z13.9 - Encounter for screening, unspecified Patient Instructions: The patient had an opportunity to ask questions regarding the treatment plan. All questions were answered. Physical exam, labs, and imaging were discussed and reviewed in detail. As well as risks, benefits, and discussion of treatment choices. No major barriers to understanding were identified. The patient expressed understanding and agreement with the above treatment plan. The patient was made aware they should contact our office by phone for worsening of their current condition, the appearance of new symptoms, or with any questions or concerns. Compliance is encouraged with any medications and follow up testing that is ordered. It is a privilege to be allowed the opportunity to participate in? your urological care.? Again, if you have any questions or concerns If you have any questions or concerns please do not hesitate to contact me. The office is [phone]. This note is constructed using voice recognition software. While every effort has been made to ensure accuracy tile installer errors may have been included. Yours sincerely, DELILAH Simons Coding Level of Care Code Est Pt Level 3 (33028) Diagnoses Renal cyst, acquired N28.1 Renal stones N20.0
== END 2024-03-27 16:23 | disposition home or self-care (01) ==
PROVIDERS: PCP Internal Medicine; Visit Provider Nurse Practitioner Family
DX: N28.1 Cyst of kidney, acquired (principal); N20.0 Calculus of kidney; Z13.9 Encounter for screening, unspecified
CPT/HCPCS: 99213

== ENCOUNTER → 2024-03-27 15:34 | Outpatient (BNVA) | payer OTHER, SELFPAY | PROVIDERS: PCP Internal Medicine; Visit Provider Nurse Practitioner Family | DX: N28.1 Cyst of kidney, acquired (principal); N20.0 Calculus of kidney | CPT/HCPCS: 81003 ==

== ENCOUNTER 2024-12-26 15:11 | Outpatient (REF) | payer OTHER, SELFPAY ==
[2024-12-26 16:48] LABS: Appearance Urine Clear; Glucose Urine UA Negative (Negative); PH 5.5 (5.0-9.0); Specific Gravity - Urine 1.025 (1.005-1.025); UMIC TRIGGER UA YES
--- OUTSIDE RECORDS SUMMARY | 2024-12-26 16:56 | XMS_ITS | Clinical Summary ---
Author Organization [address] Address [address] [place] [phone] Phone Care Team Providers Care Dust Mixer Name Role Phone Mitesh Rodriguez MD Primary Care Provider [phone] Allergies No known active allergies Medications albuterol HFA (PROAIR HFA ; PROVENTIL HFA ; VENTOLIN HFA) 90 mcg/actuation inhaler Inhale 2 Puffs into the lungs 4 times daily as needed for Cough, Wheezing or Shortness of Breath. 1 Active famotidine (PEPCID) 20 mg tablet Take 1 Tablet by mouth 2 times daily as needed for Heartburn for up to 180 days. 3 Active pyridoxine (B-6) 100 mg tablet Historic 1 Active spironolactone (ALDACTONE) 50 mg tablet Take 1 tablet (50 mg total) by mouth 1 (one) time each day. 3 Active metFORMIN XR (GLUCOPHAGE-XR) 500 mg 24 hr tabletIndicatio ns:Prediabetes TAKE 2 TABLETS BY MOUTH TWICE A DAY BEFORE MEALS 360 tablet 1 5 Active Wegovy 1.7 mg/0.75 mL injection penIndications: Obesity (BMI 30-39.9) INJECT 1.7 MG UNDER THE SKIN EVERY 7 (SEVEN) DAYS. 3 mL 2 5 Active loratadine (CLARITIN) 10 mg tablet Take 1 tablet (10 mg total) by mouth 1 (one) time each day. 90 each 1 5 01/19/20 25 Active montelukast (SINGULAIR) 10 mg tablet TAKE 1 TABLET BY MOUTH EVERYDAY AT BEDTIME 90 tablet 1 5 Active Active Problems Problem Noted Date Diagnosed Date Severe obesity (BMI 35.0-39. 9) with comorbidity ([facility] V24, [facility] V28) 07/23/2023 Asthma, allergic, moderate persistent, uncomplic ated 01/08/2021 Urticaria 12/05/2019 PCOS (polycystic ovarian syndrome) 04/29/2018 Multiple thyroid nodules 10/26/2017 Prediabetes 10/08/2016 Colon polyps 04/20/2016 Overview (01/21/2024): May 2021, two polyps removed - repeat in 5 years Internal hemorrhoids 09/11/2015 Renal stone 07/11/2015 Tobacco use disorder 12/05/2013 Snoring 06/23/2012 Overview (01/21/2024): 4-13 poly w no CRISTINA Allergic rhinitis 08/22/2005 Dysplasia of cervix (uteri) 07/10/2005 Overview (01/21/2024): IMO update Other acne 06/01/2005 Resolved Problems Problem Noted Date Diagnosed Date Resolved Date Hypertension 07/24/2005 10/20/2024 Encounters Date Type Department Care Team Description 12/19/2024 3:30 PM EST Office Visit [address] [phone] Hortencia Rutledge MD Obesity (BMI 30-39.9) (Primary Dx); PCOS (polycystic ovarian syndrome) 10/20/2024 3:00 PM EDT Office Visit Adult Medicine [address] [phone] Mitesh Rodriguez MD Routine physical examination (Primary Dx); Multiple thyroid nodules; High cholesterol; Prediabetes; Need for vaccination against Streptococcus pneumoniae; Allergic rhinitis, unspecified seasonality, unspecified trigger; Asthma, allergic, moderate persistent, uncomplicated; Other acne; PCOS (polycystic ovarian syndrome); Severe obesity (BMI 35.0-39.9) with comorbidity (CMS/HCC V24, CMS/HCC V28) 10/12/2024 4:30 PM EDT Office Visit Endocrinology [address] [phone] Hortencia Rutledge MD Obesity (BMI 30-39.9) (Primary Dx); Multiple thyroid nodules from Last 3 Months Immunizations Immunization Administration Dates Next Due Hepatitis B (Xwujjuj-Z-Jzaqg , Recombivax HB-Adult) 19yo and older 06/17/2022,01/14/2022,12/17/2021 Influenza Quadravalent, MDCK , 0.5ml, preservative free (Flucelvax) 6mo and older 10/25/2020,12/05/2019 Influenza trivalent, 0.5mL, preservative free (Fluarix; FluLaval; Fluzone) ages 6mo and older (Afluria) 3 years and older 01/18/2014 Influenza trivalent, MDCK, 0 .5mL, preservative free (Flucelvax) 6mo and older 11/17/2024 MMR, measles mumps and rubel la Live (Priorix; M-M-R II) 12mo and older 05/06/2022,12/17/2021 Moderna SARS-CoV-2 COVID-19, mRNA, LNP-S, preservative free 04/10/2020,03/13/2020 Pneumococcal conjugate 20 va lent (Prevnar 20, PCV 20) 2mo and older 10/20/2024 Pneumococcal polysaccharide 23 valent (Pneumovax 23) 2yo and older 02/05/2021 Tdap Tetanus diptheria acell ular pertussis (Boostrix; Adacel) 7yo and older 12/05/2019,06/29/2008 Surgical History Surgery Date Site/Laterality Comments KIDNEY STONE SURGERY 2012, 2015, 2016 PROCEDURE: [place] NEPHROLITHOTOMY REMOVAL CALCULUS; COMMENT: urologist in [facility] COLONOSCOPY 2015 PROCEDURE: OUTSIDE COLONOSCOPY; COMMENT: negative [...] enucleation at 1 Lymphoma Father ; Agent [place] exposure Colon polyps Other paternal first cousin-? [...] Smoking Tobacco: Light Smoker Smokeless Tobacco: Never Tobacco Cessation:Ready to Q uit: Not Asked; Counseling Given: Not Answered Alcohol Use Standard Drinks/Week Comments No 0 (1 standard drink = 0.6 oz pur e alcohol) Housing Instability Answer Date Recorde d Are you worried that in the next 2 months you may not have stable housing? No 10/20/2024 Food Access & Nutrition Answer Date Rec orded Do you have access to a vari ety of food including fruits and vegetables? Yes 10/20/2024 Access to Healthcare Answer Date Record ed Within the last 3 months, myesha tim many times did you visit the emergency department for your medical care? 0 10/20/2024 Health Literacy Answer Date Recorded How often do you need to hav e someone help you when you read instructions, pamphlets, or other written material from your doctor or pharmacy? Never 10/20/2024 Caregiver: How often do you need to have someone help you when you read instructions, pamphlets, or other written material from your doctor or pharmacy? Not on file 10/20/2024 Financial Risk Answer Date Recorded How hard is it for you to pa y for the very basics like food, housing, medical care, and air conditioning / heating? Very hard 10/20/2024 Transportation Answer Date Recorded Has the lack of transportati on kept you from meetings, work, or from getting things needed for daily living? No Has the lack of transportati on kept you from medical appointments or from getting medications? No 10/20/2024 Social Isolation Answer Date Recorded How often do you feel lonely or isolated from th ose around you? Never 10/20/2024 Food Risk Answer Date Recorded Within the past 12 months we worried whether our food would run out before we got money to buy more. Never true 10/20/2024 Within the past 12 months th e food we bought just didn't last and we didn't have money to get more. Never true 10/20/2024 Dependent Care Answer Date Recorded Do you need help finding or paying for care for your loved ones. For example, children's counselor or elderly care for an older adult? No 10/20/2024 Education Answer Date Recorded Do you think completing more education or training, like finishing a GED, going to college, or learning a trade, would be helpful for you? No 10/20/2024 Employment and Income Answer Date Recor ded During the last four weeks, have you been actively looking for work? No 10/20/2024 Living Situation Answer Date Recorded What is your living situation? Unrecognized valu e 10/20/2024 Comments No Sex and Gender Information Value Date Recorded Sex Assigned at Not on file Legal Sex Female 12:13 PM EST Gender Identity Not on file Sexual Orientation Not on file Obstetrics History Para Term AB IAB SAB Ectopic Multiple Livin g Live Births 1 1 1 1 Date Outcome GA Total Labor Labor/2nd/3rd Weight Sex Type Anes PTL Jacquelyn A1 A5 Name Clin Term Last Filed Vital Signs Vital Sign Reading Time Taken Comments Blood Pressure 119/83 12/19/2024 3:43 PM EST Pulse 112 12/19/2024 3:43 PM EST Temperature 36.4 C (97.6 F) 10/20/2024 2:59 PM EDT Respiratory Rate 18 12/19/2024 3:43 PM EST Oxygen Saturation 99% 10/20/2024 2:59 PM EDT Inhaled Oxygen Concentration - - Weight 103 kg (228 lb) 12/19/2024 3:43 PM EST Height 170.2 cm (5' 7 ) 12/19/2024 3:43 PM EST Body Mass Index 35.71 12/19/2024 3:43 PM EST Plan of Treatment Upcoming Encounters Date Type Department Care Team (Late st Contact Info) Description 05/21/2025 3:30 PM EDT Office Visit [address] [phone] Sherrie Gordon PA [address] [place] [address] 10/25/2025 2:00 PM EDT Office Visit Adult Medicine [address] [phone] Mitesh Rodriguez MD [address] [place] [address] Health Maintenance Due Date Last Done Comments HPV Vaccines (1 - 3-dose SCDM series) 04/14/2006 Social Influencers of Health Screening 10/20/2025 10/20/2024 Breast Cancer Screening 04/08/2026 04/08/19, 04/10/2023, 02/14/2022, Additional history exists Colorectal Cancer Screening: Colonoscopy 06/05/2026 06/05/2021 Cervical Cancer Screening: HPV 12/09/2027 12/08/2022 Cholesterol Screening (Lipid Panel) 10/20/2029 10/20/2024, 04/18/2024, 10/19/2023, Additional history exists DTaP,Tdap,and Td Vaccines (3 - Td or Tdap) 12/04/2029 12/05/2019, 06/29/2008 RSV Immunization Adult Patients (1 - 1-dose 75+ series) 04/14/2054 MMR Vaccines Aged Out 05/06/2022, 12/17/2021 No lo nger eligible based on patient's age to complete this topic Hepatitis B Vaccines Completed 06/17/2022, 01/14/2022, 12/17/2021 HIV Screening Completed 12/08/2022 Hepatitis C Screening Completed 12/08/2022 Depression Screening Completed 10/20/2024, 08/29/20 24 Pneumococcal Vaccine: Pediatrics (0 to 5 Years) and At-Risk Patients (6 to 49 Years) Completed 10/20/2024, 02/05/2021 COVID-19 Vaccine Completed 11/17/2024, , 12/05/2021, Additional history exists Influenza Vaccine Completed 11/17/2024, , 10/25/2020, Additional history exists HIB Vaccines Aged Out No longer eligi [...] patient's age to complete this topic Meningococcal B Vaccine Aged Out No l onger eligible based on patient's age to complete this topic RSV Immunization Patients Under 20 months Aged Out No longer eligible based on patient's age to complete this topic Varicella Vaccines Aged Out No longer eligible based on patient's age to complete this topic Procedures Procedure Name Priority Date/Time Associated Diagnosis Comments CBC WITH AUTO DIFFERENTIAL Routine 10/20/2024 3:47 PM EDT Routine physical examination HEMOGLOBIN A1C Routine 10/20/2024 3:47 PM EDT Prediabetes CBC AND DIFFERENTIAL Routine 10/20/2024 3:47 PM EDT Routine physical examination COMPREHENSIVE METABOLIC PANEL Routine 10/20/2024 3:47 PM EDT Routine physical examination LIPID PANEL WITH REFLEX TO DIRECT LDL Routine 10/20/2024 3:47 PM EDT Routine physical examination High cholesterol Prediabetes THYROID STIMULATING HORMONE WITH REFLEX TO FREE T4 AND FREE T3 Routine 10/20/2024 3:47 PM EDT Multiple thyroid nodules MG MAMMO DIGITAL SCREENING W HARIS BILAT Routine 04/08/2024 3:27 PM EST Encounter for screening mammogram for breast cancer HM DEPRESSION SCREENING Routine 10/14/2023 HPV Routine 12/08/2022 HEPATITIS C SCREENING Routine 12/08/2022 HIV SCREENING Routine 12/08/2022 COLONOSCOPY Routine 06/05/2021 from Last 3 Months or Most Recently Relevant to Health Maintenance Results * Thyroid stimulating hormone with reflex to free t4 and free t3 (10/20/2024 3:47 PM EDT) TSH 1.30 0.40 - 4.00 mcIU/mL LAB CHEMISTRY METHOD 10/20/2024 8:50 PM EDT [facility] Blood Venous blood specimen / Unknown Venipuncture / Unknown 10/20/2024 3:47 PM EDT 10/20/2024 3:47 PM EDT us Mitesh Rodriguez MD LAB BLOOD ORDERABLES Final Resu lt [facility] [address] [place] [address], [place] [phone] * Lipid panel with reflex to direct LDL (10/20/2024 3:47 PM EDT) Cholesterol 166 0 - 200 mg/dL LAB CHEMISTRY METHOD 10/20/2024 7:56 PM EDT [facility] Triglycerides 136 0 - 150 mg/dL LAB CHEMISTRY METHOD 10/20/2024 7:56 PM EDT [facility] HDL 46 >=40 mg/dL LAB CHEMISTRY METHOD 10/20/2024 7:56 PM EDT [facility] LDL Calculated 93 0 - 100 mg/dL LAB CHEMISTRY METHOD 10/20/2024 7:56 PM EDT [facility] Comment:Estimated LDL Calcul ated using equation: Total cholesterol - HDL cholesterol - (Triglycerides/5) VLDL Cholesterol Lamont 27.2 mg/dL LAB CHEMISTRY METHOD 10/20/2024 7:56 PM EDT [facility] Non HDL Chol. (LDL+VLDL) 120 <145 mg/dL LAB CHEMISTRY METHOD 10/20/2024 7:56 PM EDT [facility] Chol/HDL Ratio 3.6 0.0 - 4.4 LAB CHEMISTRY METHOD 10/20/2024 7:56 PM EDT [facility] Blood Venous blood specimen / Unknown Venipuncture / Unknown 10/20/2024 3:47 PM EDT 10/20/2024 3:47 PM EDT us Mitesh Rodriguez MD LAB BLOOD ORDERABLES Final Resu lt [facility] [address] [place] [address], * CBC auto differential (10/20/2024 3:47 PM EDT) WBC 6.2 4.8 - 10.8 K/mcL LAB HEMETOLOGY METHOD 10/20/2024 6:21 PM EDT [facility] RBC 4.30 3.80 - 4.80 M/mcL LAB HEMETOLOGY METHOD 10/20/2024 6:21 PM EDT [facility] Hemoglobin 12.7 11.5 - 16.0 g/dL LAB HEMETOLOGY METHOD 10/20/2024 6:21 PM EDT [facility] Hematocrit 37.5 35.0 - 47.0 % LAB HEMETOLOGY METHOD 10/20/2024 6:21 PM EDT [facility] MCV 87.4 79.0 - 98.0 FL LAB HEMETOLOGY METHOD 10/20/2024 6:21 PM EDT [facility] MCH 29.6 27.0 - 32.0 pcg LAB HEMETOLOGY METHOD 10/20/2024 6:[address] [facility] MCHC 33.9 32.0 - 37.0 g/dL LAB HEMETOLOGY METHOD 10/20/2024 6:[address] [facility] RDW 13.1 11.0 - 15.0 % LAB HEMETOLOGY METHOD 10/20/2024 6:[address] [facility] Platelets 360 130 - 400 K/mcL LAB HEMETOLOGY METHOD 10/20/2024 6:[address] [facility] MPV 9.0 7.0 - 11.0 FL LAB HEMETOLOGY METHOD 10/20/2024 6:[address] [facility] NRBC 0.0 <1.0 % LAB HEMETOLOGY METHOD 10/20/2024 6:[address] [facility] NRBC Absolute 0.00 <0.10 K/mcL LAB HEMETOLOGY METHOD 10/20/2024 6:[address] [facility] Neutrophils Relative 37.4 % LAB HEMETOLOGY METHOD 10/20/2024 6:[address] [facility] Lymphocytes Relative 51.5 % LAB HEMETOLOGY METHOD 10/20/2024 6:[address] [facility] Monocytes Relative 8.8 % LAB HEMETOLOGY METHOD 10/20/2024 6:[address] [facility] Eosinophils Relative 1.6 % LAB HEMETOLOGY METHOD 10/20/2024 6:[address] [facility] Basophils Relative 0.5 % LAB HEMETOLOGY METHOD 10/20/2024 6:[address] [facility] Immature Granulocytes Relative 0.2 % LAB HEMETOLOGY METHOD 10/20/2024 6:[address] [facility] Neutrophils Absolute 2.30 1.50 - 7.00 K/mcL LAB HEMETOLOGY METHOD 10/20/2024 6:21 PM EDT [facility] Lymphocytes Absolute 3.17 1.00 - 5.00 K/mcL LAB HEMETOLOGY METHOD 10/20/2024 6:21 PM EDT [facility] Monocytes Absolute 0.54 0.20 - 1.00 K/[facility] HEMETOLOGY METHOD 10/20/2024 6:21 PM EDT [facility] Eosinophils Absolute 0.10 0.00 - 0.50 K/[facility] HEMETOLOGY METHOD 10/20/2024 6:21 PM EDT [facility] Basophils Absolute 0.03 0.00 - 0.20 K/[facility] HEMETOLOGY METHOD 10/20/2024 6:21 PM EDT [facility] Immature Granulocytes Absolute 0.01 0.00 - 0.03 K/[facility] HEMETOLOGY METHOD 10/20/2024 6:21 PM EDT [facility] Blood Venous blood specimen / Unknown Venipuncture / Unknown 10/20/2024 3:47 PM EDT 10/20/2024 3:47 PM EDT us Mitesh Rodriguez MD LAB BLOOD ORDERABLES Final Resu lt [facility] [address] [place] [address], * Hemoglobin A1c (10/20/2024 3:47 PM EDT) Hemoglobin A1C 5.8 <6.5 % LAB CHEMISTRY METHOD 10/21/2024 1:04 PM EDT [facility] Mean Bld Glu Estim. 120 mg/dL LAB CHEMISTRY METHOD 10/21/2024 1:04 PM EDT [facility] Blood Venous blood specimen / Unknown Venipuncture / Unknown 10/20/2024 3:47 PM EDT 10/20/2024 3:47 PM EDT us Mitesh Rodriguez MD LAB BLOOD ORDERABLES Final Resu lt [facility] [address] [place] [address], [place] [phone] * (ABNORMAL) Comprehensive metabolic panel (10/20/2024 3:47 PM EDT) Sodium 138 133 - 145 mmol/L LAB CHEMISTRY METHOD 10/20/2024 8:[address] [facility] Potassium 3.8 3.5 - 5.5 mmol/L LAB CHEMISTRY METHOD 10/20/2024 8:[address] [facility] Chloride 105 96 - 110 mmol/L LAB CHEMISTRY METHOD 10/20/2024 8:[address] [facility] CO2 31 21 - 32 mmol/L LAB CHEMISTRY METHOD 10/20/2024 8:[address] [facility] Anion Gap 2(L) 3 - 11 LAB CHEMISTRY METHOD 10/20/2024 8:[address] [facility] Glucose 74 70 - 100 mg/dL LAB CHEMISTRY METHOD 10/20/2024 8:[address] [facility] BUN 12 5 - 25 mg/dL LAB CHEMISTRY METHOD 10/20/2024 8:[address] [facility] Creatinine 0.82 0.50 - 1.10 mg/dL LAB CHEMISTRY METHOD 10/20/2024 8:[address] [facility] eGFR 90 >=60 mL/min/1. 73m2 LAB CHEMISTRY METHOD 10/20/2024 8:[address] [facility] Comment:Calculation based on the Chronic Kidney Disease Epidemiology Collaboration (CKD-EPI) equation refit without adjustment for race. BUN/Creatinine Ratio 14.6 LAB CHEMISTRY METHOD 10/20/2024 8:[address] [facility] Calcium 9.0 8.5 - 10.5 mg/dL LAB CHEMISTRY METHOD 10/20/2024 8:00 PM EDT [facility] AST (SGOT) 23 10 - 42 unit/L LAB CHEMISTRY METHOD 10/20/2024 8:00 PM EDT [facility] ALT (SGPT) 28 10 - 60 unit/L LAB CHEMISTRY METHOD 10/20/2024 8:00 PM EDT [facility] Alkaline Phosphatase 98 42 - 121 unit/L LAB CHEMISTRY METHOD 10/20/2024 8:00 PM EDT [facility] Total Protein 7.4 6.0 - 8.0 g/dL LAB CHEMISTRY METHOD 10/20/2024 8:00 PM EDT [facility] Albumin 3.6 3.2 - 5.0 g/dL LAB CHEMISTRY METHOD 10/20/2024 8:00 PM EDT [facility] Total Bilirubin 0.2 0.0 - 1.4 mg/dL LAB CHEMISTRY METHOD 10/20/2024 8:00 PM EDT [facility] Blood Venous blood specimen / Unknown Venipuncture / Unknown 10/20/2024 3:47 PM EDT 10/20/2024 3:47 PM EDT us Mitesh Rodriguez MD LAB BLOOD ORDERABLES Final Resu lt [facility] [address] [place] [address], * MG Mammo Digital Screening w Haris bilat (04/08/2024 3:27 PM EST) Anatomical Region Laterality Modality Breast Bilateral Mammography 04/10/2024 7:33 PM EST Impressions 04/10/2024 7:34 PM EST No mammographic evidence of malignancy. BREAST DENSITY: B - There are scattered areas of fibroglandular density. BI-RADS CATEGORY: 1 - NEGATIVE RECOMMENDATION: Screening bilateral mammogram is recommended in 1 year. MAMMO LOCATION: [facility], [address] [place] [id number], . -------- FINAL REPORT -------- Dictated By: Verona Landaverde Dictated Date: 04/10/2024 19:33 ET Assigned Physician: Verona Landaverde Reviewed and Electronically Signed By: Verona Landaverde Signed Date: 04/10/2024 19:34 ET Workstation ID: [id number] Transcribed By: Self Edit Transcribed Date: 04/10/2024 19:33 ET Narrative 04/10/2024 7:34 PM EST EXAM: Screening Mammogram CLINICAL: 43 years old, Female, routine annual exam. COMPARISON: 04/10/2023 and as far back as 12/16/2019 TECHNIQUE: Bilateral MLO and CC views were obtained digitally with 3-D mammogram (digital breast tomosynthesis). Computer-aided detection was utilized in evaluation of this exam (CAD). FINDINGS: No new suspicious mass, architectural distortion, or suspicious calcifications. Procedure Note Verona Landaverde MD - 04/10/2024 EXAM: Screening Mammogram CLINICAL: 43 years old, Female, routine annual exam. COMPARISON: 04/10/2023 and as far back as 12/16/2019 TECHNIQUE: Bilateral MLO and CC views were obtained digitally with 3-Dmammogram (digital breast tomosynthesis). Computer-aided detection wasutilized in evaluation of this exam (CAD). FINDINGS: No new suspicious mass, architectural distortion, or suspiciouscalcifications. IMPRESSION: No mammographic evidence of malignancy. BREAST DENSITY: B - There are scattered areas of fibroglandular density. BI-RADS CATEGORY: 1 - NEGATIVE RECOMMENDATION: Screening bilateral mammogram is recommended in 1 year. MAMMO LOCATION: [facility], [address] [place] [address], [id number], . -------- FINAL REPORT -------- Dictated By: Verona Landaverde Dictated Date: 04/10/2024 19:33 ET Assigned Physician: Verona Landaverde Reviewed and Electronically Signed By: Verona Landaverde Signed Date: 04/10/2024 19:34 ET Workstation ID: [id number] Transcribed By: Self Edit Transcribed Date: 04/10/2024 19:33 ET Michell Turner CNM IMG BI PROCEDURES Final Result * Depression Screening (10/14/2023) Depression Screening abstracted Historical Provider HEALTH MAINTENANCE Final Result * Cervical Cancer Screening: HPV (12/08/2022) Pathologist [facility] Cervical Cancer Screening: HPV negative, abstracted Historical Provider HEALTH MAINTENANCE Final Result * HIV Screening (12/08/2022) [facility] HIV Screening abstracted Historical Provider HEALTH MAINTENANCE Final Result * Hepatitis C Screening (12/08/2022) Pathologist [facility] Hepatitis C Screening abstracted [facility] Provider HEALTH MAINTENANCE Final Result * Colonoscopy (06/05/2021) Pathologist [facility] Colonoscopy abnormal, abstracted Anatomical Region Laterality Modality Other Historical Provider HEALTH MAINTENANCE Final Result from Last 3 Months or Most Recently Relevant to Health Maintenance Insurance [facility] Care Teams Dust Mixer Relationship Specialty Start Date End Date Mitesh Rodriguez MD [address] [place] [phone] PCP - General 07/23/05
== END 2024-12-26 15:12 | disposition home or self-care (01) ==
LOC: HO.HMGCLDS 15:11
PROVIDERS: PCP Internal Medicine; Visit Provider Nurse Practitioner Family
DX: R35.0 Frequency of micturition (principal)
CPT/HCPCS: 81001; 87086